=== PATIENT | female | born 1960 | race Asian ===

== ENCOUNTER 2017-03-09 09:27 | Outpatient (CLI) | payer OTHER ==
[2015-03-10 18:31] VITALS: BP 141/78
[2017-03-09 09:54] LABS: APPEARANCE,URINE Clear (CLEAR); COLOR,URINE Yellow (YELLOW); OCCULT BLOOD,URINE Trace-intact (NEGATIVE); PH URINE 6.5 (5.0 - 8.0); UROBILINOGEN URINE 0.2 Eu (0.2-1.0)
[2017-03-09 10:06] LABS: BASOPHILS % 0.8 (0.0-1.5); EOSINOPHILS % 2.9 % (0.0-6.8); MEAN CORPUSCULAR HEMOGLOBIN 30.3 pg (28.0-34.0); MONOCYTES % 4.1 % (0.0-11.0); NEUTROPHILS # 2.8 # k/uL (1.4-7.7)
[2017-03-09 10:33] LABS: eGFR (African) > 60; eGFR (Non-African) > 60
== END 2017-03-09 09:30 ==
LOC: LAB 09:27
PROVIDERS: ATTEND Family Medicine
DX: R10.2 Pelvic and perineal pain (principal)
CPT/HCPCS: 36415; 80053; 81002; 85025

== ENCOUNTER 2018-10-31 16:59 | Outpatient (CLI) | payer OTHER ==
[2015-03-10 18:31] VITALS: BP 141/78
[2018-12-12 12:05] LABS: BASOPHILS % 0.6 % (0.0-1.5); NEUTROPHILS # 5.4 # k/uL (1.4-7.7)
== END 2018-10-31 17:02 ==
LOC: LAB 16:59
PROVIDERS: ATTEND Family Medicine
DX: J01.00 Acute maxillary sinusitis, unspecified (principal)
CPT/HCPCS: 36415; 85025